=== PATIENT | female | born 1970 ===

== ENCOUNTER 2018-04-21 19:03 | Emergency (ER) | payer OTHER ==
[2018-04-21 20:12] VITALS: BP 165/93; PULSE 83; RESP 18; TEMP 98.7; O2SAT 100
--- NOTE | 2018-04-21 20:24 | ED PDOC ---
HPI: General Adult Time Seen by Provider: 04/21/18 20:18 Chief Complaint (Nursing): Breast Problem Chief Complaint (Provider): Breast Problem History Per: Patient History/Exam Limitations: no limitations Onset/Duration Of Symptoms: Days (x1) Current Symptoms Are (Timing): Still Present Additional Complaint(s): 48 year old female presents to the ED for evaluation of right sided breast swelling for one day. Patient reports that yesterday she noticed chest wall pain along with numbness in her back after lifting heavy boxes, and today the swelling worsened in her breast so she came to be seen. Otherwise, she states she is completing her period right now and has no family or self hx of breast cancer. PMD: none provided Past Medical History Reviewed: Historical Data, Nursing Documentation, Vital Signs Vital Signs: Last Vital Signs Temp 98.7 F 04/21/18 20:10 Pulse 83 04/21/18 20:10 Resp 18 04/21/18 20:10 BP 165/93 H 04/21/18 20:10 Pulse Ox 100 04/21/18 20:10 - Medical History PMH: No Chronic Diseases - Surgical History Surgical History: No Surg Hx - Family History Family History: States: No Known Family Hx - Social History Current smoker - smoking cessation education provided: No Ex-Smoker (has not smoked in the last 12 months): Yes Alcohol: None Drugs: Denies - Home Medications Home Medications: Ambulatory Orders Medication Instructions Recorded Ibuprofen [Motrin] 600 mg PO Q8 PRN #21 tab 04/21/18 - Allergies Allergies/Adverse Reactions: Allergies Allergy/AdvReac Type Severity Reaction Status Date / Time No Known Allergies Allergy Verified 04/21/18 20:10 Review of Systems ROS Statement: Except As Marked, All Systems Reviewed And Found Negative Musculoskeletal: Positive for: Other (right breast pain and swelling) Physical Exam - Reviewed Nursing Documentation Reviewed: Yes Vital Signs Reviewed: Yes - Physical Exam Appears: Positive for: No Acute Distress Head Exam: Positive for: ATRAUMATIC, NORMOCEPHALIC Skin: Positive for: Normal Color Eye Exam: Positive for: Normal appearance Neck: Positive for: Normal, Painless ROM Cardiovascular/Chest: Positive for: Regular Rate, Rhythm, Chest Non Tender Back: Positive for: Normal Inspection Neurologic/Psych: Negative for: Motor/Sensory Deficits Comments: Breast exam: approx 4cm in diameter area of swelling noted to right breast without surrounding erythema or induration - Laboratory Results Urine POC: Negative - ECG O2 Sat by Pulse Oximetry: 100 (RA) Pulse Ox Interpretation: Normal Medical Decision Making Medical Decision Making: Time: 2020 Initial Impression: breast swelling Initial Plan: --Discussed with patient importance of obtaining a mammogram for further evaluation especially since she notes she has never had one. --U-preg Scribe Attestation: Documented by Georgia Fung, acting as a scribe for Brigido Tao PA-C. Provider Scribe Attestation: All medical record entries made by the Scribe were at my direction and personally dictated by me. I have reviewed the chart and agree that the record accurately reflects my personal performance of the history, physical exam, medical decision making, and the department course for this patient. I have also personally directed, reviewed, and agree with the discharge instructions and disposition. Disposition - Clinical Impression Clinical Impression: Pain of breast - Patient ED Disposition Is Patient to be Admitted: No - Disposition [facility] Disposition: Routine/Home Disposition Time: 20:47 Condition: FAIR Prescriptions: Ibuprofen [Motrin] 600 mg PO Q8 PRN #21 tab PRN Reason: Pain, Moderate (4-7) Instructions: Common Breast Problems, Mastalgia (DC) Print Language: [place]
== END 2018-04-21 21:01 | disposition home or self-care (01) ==
LOC: H.ER 19:03
DX: N64.4 Mastodynia (principal); Z87.891 Personal history of nicotine dependence